=== PATIENT | male | born 1945 | race American Indian/Alaskan Native ===

== ENCOUNTER 2017-11-24 21:22 | Inpatient (IN) | payer MEDICARE, OTHER ==
[2017-11-24] MEDS ORDERED: NACL 0.9% 1000 ML 1,000 ML IV ONE (21:37)
[2017-11-24 22:27] LABS: Basophils % (Auto) 0.3 % (0.0-1.8); Eosinophils # (Auto) 0.1 K/mm3 (0.0-0.4); Eosinophils % (Auto) 1.2 % (0.0-4.3); Hematocrit 45.1 % (35.5-45.6); Lymphocytes # (Auto) 2.2 K/mm3 (1.2-5.4); Lymphocytes % (Auto) 23.7 % (13.4-35.0); Mean Corpuscular HGB Conc 33 % (32-34); Mean Corpuscular Hemoglobin 29 pg (28-32); Mean Corpuscular Volume 87 fl (84-94); Monocytes # (Auto) 0.8 K/mm3 (0.0-0.8); Monocytes % (Auto) 8.8 % (0.0-7.3); Platelet Count 140 K/mm3 (140-440); Red Blood Count 5.22 M/mm3 (3.65-5.03); Red Cell Distribution Width 14.6 % (13.2-15.2)
[2017-11-24 22:38] LABS: INR 0.87 (0.87-1.13); Partial Thromboplastin Time 24.3 Sec. (24.2-36.6)
[2017-11-24 22:45] LABS: Alanine Aminotransferase 37 units/L (7-56); Albumin 4.4 g/dL (3.9-5); BUN/Creatinine Ratio 25; Blood Urea Nitrogen 27 mg/dL (9-20); Hemolysis Index 9
[2017-11-25] MEDS ORDERED: NACL ONE (00:12)
--- NOTE | 2017-11-25 01:08 | Cat Scan Report ---
FINAL REPORT PROCEDURE: CT ABDOMEN PELVIS W CON TECHNIQUE: Computerized axial tomography of the abdomen and pelvis was performed after the IV injection of iodinated nonionic contrast. HISTORY: GI bleeding COMPARISON: No prior studies are available for comparison. FINDINGS: Visualized lower thorax: No significant abnormality. Liver: The liver size is normal. There are multiple sub centimeter areas of hypoattenuation in the right and left lobe of the liver. Small cysts are suspected. A larger area of hypoattenuation in the upper right lobe of the liver measures 1.5 centimeters. This is most consistent with a cyst. Spleen: Normal size and attenuation. Gallbladder and biliary system: Normal. Pancreas: Normal. Adrenals: Normal. Kidneys: Normal. GI tract: No obstruction. No ileus or enteritis. Moderate diverticular change in the colon. No inflammatory change. The appendix is normal.. Lymph nodes and mesentery: Normal. Vasculature: Normal. Bladder: Normal. Reproductive organs: The prostate gland is enlarged. Peritoneum: No free fluid. Musculoskeletal structures: No significant abnormality. Other: None. IMPRESSION: There is no evidence of intestinal or urinary tract obstruction. No ileus or enteritis. The appendix is normal. Moderate diverticulosis of the colon. Multiple liver cysts are suspected as described. The largest measures 1.5 centimeters.
--- NOTE | 2017-11-25 01:37 | Emergency Department Report ---
ED GI Bleed HPI - General Chief complaint: GI Bleed Stated complaint: RECTAL BLEEDING Time Seen by Provider: 11/24/17 21:44 Source: patient, EMS Mode of arrival: Stretcher Limitations: No Limitations - History of Present Illness Initial comments: Patient is a 72-year-old male who is presenting with rectal bleeding. Patient states bright red. Patient states he has no history of GI bleed. Patient states he has no abdominal pain fevers chills nausea vomiting at this time. -: This afternoon Quality: painless Associated Symptoms: denies: abdominal pain, nausea, vomiting, epistaxis, headaches, loss of appetite, malaise, easy bruising, rash, shortness of breath, syncope, weakness - Related Data Allergies Allergy/AdvReac Type Severity Reaction Status Date / Time No Known Allergies Allergy Unverified 11/24/17 21:32 ED Review of Systems ROS: Stated complaint: RECTAL BLEEDING Other details as noted in HPI Comment: All other systems reviewed and negative ED Past Medical Hx - Past Medical History Previous Medical History?: Yes Hx Hypertension: Yes Additional medical history: hyperlipidemia - Surgical History Past Surgical History?: No - Social History Smoking Status: Never Smoker ED Physical Exam - General Limitations: No Limitations General appearance: alert, in no apparent distress - Head Head exam: Present: atraumatic, normocephalic - Eye Eye exam: Present: normal appearance - ENT ENT exam: Present: mucous membranes moist - Neck Neck exam: Present: normal inspection - Respiratory Respiratory exam: Present: normal lung sounds bilaterally. Absent: respiratory distress, wheezes, rales, rhonchi - Cardiovascular Cardiovascular Exam: Present: regular rate, normal rhythm. Absent: systolic murmur, diastolic murmur, rubs, gallop - GI/Abdominal GI/Abdominal exam: Present: soft, normal bowel sounds. Absent: distended, tenderness, guarding, rebound - Rectal Rectal exam: Present: heme (+) stool (grossly bloody) - Extremities Exam Extremities exam: Present: normal inspection - Back Exam Back exam: Present: normal inspection - Neurological Exam Neurological exam: Present: alert, oriented X3 - Psychiatric Psychiatric exam: Present: normal affect, normal mood - Skin Skin exam: Present: warm, dry, intact, normal color. Absent: rash ED Course Vital Signs 11/24/17 11/24/17 21:32 22:19 Pulse Rate 82 Respiratory 16 Rate Blood Pressure 120/70 O2 Sat by Pulse 98 100 Oximetry ED Medical Decision Making - Lab Data Result diagrams: 11/24/17 22:04 11/24/17 Unknown - EKG Data -: EKG Interpreted by Me EKG shows normal: sinus rhythm, axis, intervals, QRS complexes, ST-T waves Rate: normal - EKG Data Interpretation: normal EKG - Radiology Data Radiology results: report reviewed CT abdomen and pelvis shows diverticular disease - Medical Decision Making Patient is a 72-year-old Female who is presenting with bleeding in his stool. Patient was grossly bloody on rectal exam and did not have any obvious hemorrhoids. Patient states he is more tender higher up in the rectum. CT was done that showed that he does have diverticulosis which is most likely causes bleeding. Patient will be admitted to Dr. Valdez to watch his hemoglobin For 48 hours. Critical care attestation.: If time is entered above; I have spent that time in minutes in the direct care of this critically ill patient, excluding procedure time. ED Disposition Clinical Impression: Diverticula of colon GI bleed Qualifiers: GI bleed type/associated pathology: unspecified gastrointestinal hemorrhage type Qualified Code(s): K92.2 - Gastrointestinal hemorrhage, unspecified Disposition: DC-09 OP ADMIT IP TO THIS HOSP Is pt being admited?: Yes Does the pt Need Aspirin: No Condition: Stable
[2017-11-25] MEDS ORDERED: ZOFRAN IV PRN (02:52)
[2017-11-25] MEDS ORDERED: TYLENOL PO PRN (02:52)
[2017-11-25] MEDS ORDERED: PROTONIX IV ONE (02:52)
[2017-11-25] MEDS ORDERED: SODIUM CHLORIDE FLUSH SYRINGE 10 ML IV PRN (02:52)
--- NOTE | 2017-11-25 02:54 | History and Physical Report ---
History of Present Illness Date of examination: 11/25/17 History of present illness: 72-year-old man with a history of hypertension, hyperlipidemia, comes to the emergency room because he had one episode of black stool yesterday followed by 5 episodes of bright red blood rectum Review Of Systems: Constitutional: no weight loss Ears, eyes, nose, mouth and throat: no nasal congestion, no nasal discharge, no sinus pressure, blurry vision, diplopia Neck: No neck pain or rigidity. Cardiovascular: no chest pain, orthopnea, palpitations Respiratory: no shortness of breath, cough Gastrointestinal:no abdominal pain Genitourinary : no dysuria, frequency , hematuria Musculoskeletal: no muscle ache Integumentary: no rash, no pruritis Neurological: no parathesias, focal weakness Endocrine: no cold or heat intolerance, no polyuria or polydipsia Hematologic/Lymphatic: no easy bruising, no easy bleeding, no gland swelling Allergic/Immunologic: no urticaria, no angioedema. PAST MEDICAL HISTORY: Hypertension, hyperlipidemia PAST SURGICAL HISTORY: Appendectomy, ankle surgery SOCIAL HISTORY:alchol use, no tobacco or drugs FAMILY HISTORY:hypertension Medications and Allergies Allergies Allergy/AdvReac Type Severity Reaction Status Date / Time No Known Allergies Allergy Unverified 11/24/17 21:32 Home Medications Medication Instructions Recorded Confirmed Last Taken Type Atorvastatin [Lipitor Tab] 40 mg PO QDAY 11/25/17 11/25/17 11/23/17 History Lisinopril [Zestril] 20 mg PO QDAY 11/25/17 11/25/17 11/23/17 History Sildenafil Citrate [Viagra] 100 mg PO QDAY 11/25/17 11/25/17 10/25/17 History Triamter/Hctz 37.5-25 mg 37.5 PO QDAY 11/25/17 11/23/17 History Exam - Physical Exam Narrative exam: Gen. appearance: Patient lying in bed, no apparent distress HEENT: Normocephalic, atraumatic, pupils equally round and reactive to light, extraocular movement intact, and no sclericterus,. No JVD or thyromegaly or nodule,neck supple, no carotid bruit ,mucous membranes moist, no exudate or erythema Heart: S1, S2, regular rate and rhythm Lungs: Clear to auscultation bilaterally, breathing comfortable Abdomen: Positive bowel sounds, nontender, nondistended, no organomegaly Extremity: No edema, cyanosis, clubbing Skin: No rash, nodules, warm, dry Neuro: Oriented 3, cranial nerves II-12 intact, speech is fluent, motor and sensory intact - Constitutional Vitals: Temp Pulse Resp BP Pulse Ox 82 16 120/70 100 11/24/17 21:32 11/24/17 22:19 11/24/17 21:32 11/24/17 22:19 Results - Labs CBC & Chem 7: 11/25/17 03:12 11/24/17 Unknown Labs: Abnormal lab results 11/24/17 11/24/17 Range/Units 22:04 Unknown RBC 5.22 H (3.65-5.03) M/mm3 [place] % (Auto) 8.8 H (0.0-7.3) % BUN 27 H (9-20) mg/dL Glucose 119 H (75-100) mg/dL - Imaging and Cardiology CT scan - pelvis: report reviewed US - abdomen: report reviewed Assessment and Plan Assessment GIB secondary to diverticulosis hypertension Hyperlipidemia Plan Admit to medicine Start IV fluids, Protonix, check serial hemoglobin Consult GI Continue appropriate outpatient medications DVT prophylaxis
[2017-11-25] MEDS ORDERED: NACL 0.45% 1000 ML 1,000 ML IV SCH (03:00)
[2017-11-25 03:19] LABS: Hematocrit 38.5 % (35.5-45.6); Hemoglobin 12.9 gm/dl (11.8-15.2)
[2017-11-25 07:35] LABS: Hematocrit 37.8 % (35.5-45.6); Hemoglobin 12.7 gm/dl (11.8-15.2)
--- NOTE | 2017-11-25 10:01 | Event Note ---
Date: 11/25/17 Pt admitted today with GI bleeding from diverticulitis seen and examined. Remains clinically stable.
[2017-11-25] MEDS: SODIUM CHLORIDE FLUSH SYRINGE 10 ML IV SCH ×2 (14:19→21:00)
[2017-11-25] MEDS: D5NS 1,000 ML IV SCH (14:35)
[2017-11-25 15:00] LABS: Hematocrit 36.3 % (35.5-45.6); Hemoglobin 11.9 gm/dl (11.8-15.2)
--- NOTE | 2017-11-25 15:21 | Gastroenterology Consultation ---
History of Present Illness - Reason for Consult Consult date: 11/25/17 GI bleed Requesting physician: SUN BAJWA - History of Present Illness Mr Plunkett is a 72 yo aam who presents for multiple episodes of maroon blood per rectum. Pt reports having ~5 episodes of bright and dark appearing blood prior to admission. This occured within 1 day span. last episode was 9 pm last night. He denies any associated abdominal pain with bleeding episodes and currently continues to deny abd pain. He denies prior h/o gi bleeding. No h/o weight loss and not on anticoagulation. he reports having a colonoscopy 3 years ago with 3 polyps removed by outside gi physician and was due for repeat this year. Vitals and labs stable. Past History Past Medical History: hypertension, hyperlipidemia Past Surgical History: No surgical history Social history: no significant social history Family history: no significant family history Medications and Allergies Allergies Allergy/AdvReac Type Severity Reaction Status Date / Time No Known Allergies Allergy Unverified 11/24/17 21:32 Home Medications Medication Instructions Recorded Confirmed Last Taken Type Atorvastatin [Lipitor Tab] 40 mg PO QDAY 11/25/17 11/25/17 11/23/17 History Lisinopril [Zestril] 20 mg PO QDAY 11/25/17 11/25/17 11/23/17 History Sildenafil Citrate [Viagra] 100 mg PO QDAY 11/25/17 11/25/17 10/25/17 History Triamter/Hctz 37.5-25 mg 37.5 mg PO QDAY 11/25/17 11/25/17 11/23/17 History Active Meds: Active Medications Acetaminophen (Tylenol) 650 mg PO Q4H PRN PRN Reason: Pain MILD(1-3)/Fever >100.5/ROPER Sodium Chloride (Nacl 0.45% 1000 Ml) 1,000 mls @ 75 mls/hr IV DIRECT ARIANA Last Admin: 11/25/17 10:12 Dose: 75 mls/hr Dextrose/Sodium Chloride (D5ns) 1,000 mls @ 75 mls/hr IV DIRECT ARIANA Last Admin: 11/25/17 14:35 Dose: 75 mls/hr Ondansetron HCl (Zofran) 4 mg IV Q8H PRN PRN Reason: Nausea And Vomiting Sodium Chloride (Sodium Chloride Flush Syringe 10 Ml) 10 ml IV BID ARIANA Last Admin: 11/25/17 14:19 Dose: Not Given Sodium Chloride (Sodium Chloride Flush Syringe 10 Ml) 10 ml IV PRN PRN PRN Reason: LINE FLUSH Review of Systems - Review of Systems All systems: negative (per HPI) Exam - Constitutional Vital Signs: Temp Pulse Resp BP Pulse Ox 69 13 118/76 99 11/25/17 04:00 11/25/17 04:00 11/25/17 04:00 11/25/17 04:00 General appearance: no acute distress - EENT Eyes: PERRL, EOM intact ENT: hearing intact, clear oral mucosa - Neck Neck: supple, normal ROM - Respiratory Respiratory effort: normal Respiratory: bilateral: CTA - Cardiovascular Rhythm: regular Heart Sounds: Present: S1 & S2 Extremities: No edema, Full ROM - Gastrointestinal General gastrointestinal: Present: soft, non-tender, non-distended, normal bowel sounds - Integumentary Integumentary: Present: clear, warm - Neurologic Neurological: alert and oriented x3 - Psychiatric Psychiatric: appropriate mood/affect - Labs CBC & Chem 7: 11/25/17 14:51 11/24/17 Unknown Lab Results: Laboratory Results - last 24 hr 11/24/17 11/24/17 11/24/17 21:50 22:04 22:08 WBC 9.3 RBC 5.22 H Hgb 15.0 Hct 45.1 MCV 87 MCH 29 MCHC 33 RDW 14.6 Plt Count 140 Lymph % (Auto) 23.7 [place] % (Auto) 8.8 H Eos % (Auto) 1.2 Baso % (Auto) 0.3 Lymph # 2.2 [place] # 0.8 Eos # 0.1 Baso # 0.0 Seg Neutrophils % 66.0 Seg Neutrophils # 6.2 PT 12.2 INR 0.87 APTT 24.3 Sodium Potassium Chloride Carbon Dioxide Anion Gap BUN Creatinine Estimated GFR BUN/Creatinine Ratio Glucose Calcium Total Bilirubin AST ALT Alkaline Phosphatase Total Protein Albumin Albumin/Globulin Ratio Blood Type O POSITIVE Antibody Screen Negative 11/24/17 11/25/17 11/25/17 Unknown 03:12 07:21 WBC RBC Hgb 12.9 12.7 Hct 38.5 D 37.8 MCV MCH MCHC RDW Plt Count Lymph % (Auto) [place] % (Auto) Eos % (Auto) Baso % (Auto) Lymph # [place] # Eos # Baso # Seg Neutrophils % Seg Neutrophils # PT INR APTT Sodium 144 Potassium 3.9 Chloride 102.9 Carbon Dioxide 27 Anion Gap 18 BUN 27 H Creatinine 1.1 Estimated GFR > 60 BUN/Creatinine Ratio 25 Glucose 119 H Calcium 9.0 Total Bilirubin 0.40 AST 27 ALT 37 Alkaline Phosphatase 93 Total Protein 7.2 Albumin 4.4 Albumin/Globulin Ratio 1.6 Blood Type Antibody Screen 11/25/17 14:51 WBC RBC Hgb 11.9 Hct 36.3 MCV MCH MCHC RDW Plt Count Lymph % (Auto) [place] % (Auto) Eos % (Auto) Baso % (Auto) Lymph # [place] # Eos # Baso # Seg Neutrophils % Seg Neutrophils # PT INR APTT Sodium Potassium Chloride Carbon Dioxide Anion Gap BUN Creatinine Estimated GFR BUN/Creatinine Ratio Glucose Calcium Total Bilirubin AST ALT Alkaline Phosphatase Total Protein Albumin Albumin/Globulin Ratio Blood Type Antibody Screen - Imaging CT Scan: report reviewed Assessment and Plan 1. GI bleed - suspected lower gi bleed based on history/description. no signs of active bleeding at present time, H/H stable and HD stable. CT without acute findings and showed diverticulosis. will plan for colonoscopy tomorrow (prep this evening) for diagnostic purposes and rule out other possible sources for bleeding. okay for clears today and npo at midnight.
[2017-11-25] MEDS ORDERED: DULCOLAX PO ONE (15:22)
[2017-11-25] MEDS ORDERED: GOLYTELY PO ONE (17:00)
[2017-11-26] MEDS: D5NS 1,000 ML IV SCH (04:56)
[2017-11-26 05:44] LABS: Basophils % (Auto) 0.3 % (0.0-1.8); Eosinophils # (Auto) 0.2 K/mm3 (0.0-0.4); Eosinophils % (Auto) 3.2 % (0.0-4.3); Hematocrit 34.5 % (35.5-45.6); Hemoglobin 11.6 gm/dl (11.8-15.2); Lymphocytes # (Auto) 2.6 K/mm3 (1.2-5.4); Lymphocytes % (Auto) 47.8 % (13.4-35.0); Mean Corpuscular HGB Conc 34 % (32-34); Mean Corpuscular Hemoglobin 29 pg (28-32); Mean Corpuscular Volume 87 fl (84-94); Monocytes # (Auto) 0.6 K/mm3 (0.0-0.8); Monocytes % (Auto) 11.4 % (0.0-7.3); Platelet Count 113 K/mm3 (140-440); Red Blood Count 3.99 M/mm3 (3.65-5.03); Red Cell Distribution Width 13.9 % (13.2-15.2)
[2017-11-26 06:09] LABS: BUN/Creatinine Ratio 19; Blood Urea Nitrogen 17 mg/dL (9-20); Calcium 7.7 mg/dL (8.4-10.2); Hemolysis Index 7
[2017-11-26] MEDS: SODIUM CHLORIDE FLUSH SYRINGE 10 ML IV SCH (09:21)
[2017-11-26] MEDS ORDERED: WATER FOR IRRIG STERILE ONE (09:44)
[2017-11-26] MEDS ORDERED: WATER FOR IRRIG STERILE IR ONE (09:44)
[2017-11-26] MEDS ORDERED: NACL 0.9% 1000 ML 1,000 ML IV SCH (11:00)
--- NOTE | 2017-11-26 11:06 | Anesthesia Day of Surgery ---
Anesthesia Day of Surgery - Day of Surgery Patient Examined: Yes Patient H&P Reviewed: Yes Patient is NPO: Yes Beta Blockers: Yes Cardiac Clearance: Yes Pulmonary Clearance: Yes Chad's Test: N/A
--- NOTE | 2017-11-26 11:08 | Anesthesia Consultation ---
Anesthesia Consult and Med Hx Date of service: 11/26/17 - Airway Anesthetic Teeth Evaluation: Good ROM Head & Neck: Adequate Mental/Hyoid Distance: Adequate Mallampati Class: Class II Intubation Access Assessment: Good - Pulmonary Exam CTA: Yes - Cardiac Exam Cardiac Exam: RRR - Pulmonary Hx Smoking: No (08/27/1960) Hx Asthma: No Hx Respiratory Symptoms: No SOB: No COPD: No Home Oxygen Therapy: No Hx Pneumonia: No Hx Sleep Apnea: No - Cardiovascular System Hx Hypertension: Yes Hx Coronary Artery Disease: No Hx Heart Attack/AMI: No Hx Angina: No Hx Percutaneous Transluminal Coronary Angioplasty (PTCA): No Hx Cardia Arrhythmia: No Hx Pacemaker: No Hx Internal Defibrillator: No Hx Valvular Heart Disease: No Hx Heart Murmur: No Hx Peripheral Vascular Disease: No - Central Nervous System Hx Neuromuscular Disorder: No Hx Seizures: No CVA: No Hx Back Pain: No Hx Psychiatric Problems: No - Gastrointestinal Hx Ulcer: No Hx Gastroesophageal Reflux Disease: No - Endocrine Hx Renal Disease: No Hx End Stage Renal Disease: No - Other Systems Hx Cancer: No
--- NOTE | 2017-11-26 11:23 | Progress Note ---
Objective - Constitutional Vitals: Vital Signs - 12hr 11/26/17 11/26/17 11/26/17 02:59 04:00 07:45 Temperature 98.8 F 99 F Pulse Rate 67 76 71 Respiratory 20 18 Rate Blood Pressure Blood Pressure 117/68 119/71 [Left] O2 Sat by Pulse 97 97 Oximetry 11/26/17 11/26/17 11/26/17 08:22 09:47 10:21 Temperature 98.5 F Pulse Rate 71 68 Respiratory 18 13 Rate Blood Pressure 148/77 Blood Pressure [Left] O2 Sat by Pulse 99 99 98 Oximetry 11/26/17 10:22 Temperature 98.5 F Pulse Rate 68 Respiratory 13 Rate Blood Pressure 148/77 Blood Pressure [Left] O2 Sat by Pulse 98 Oximetry - Labs CBC & Chem 7: 11/26/17 05:20 11/26/17 05:20 Labs: Abnormal lab results 11/26/17 11/26/17 Range/Units 05:20 05:20 Hgb 11.6 L (11.8-15.2) gm/dl Hct 34.5 L (35.5-45.6) % Plt Count 113 L (140-440) K/mm3 Lymph % (Auto) 47.8 H (13.4-35.0) % [place] % (Auto) 11.4 H (0.0-7.3) % Seg Neutrophils % 37.3 L (40.0-70.0) % Glucose 108 H (75-100) mg/dL Calcium 7.7 L (8.4-10.2) mg/dL
--- NOTE | 2017-11-26 11:26 | Post Operative Note ---
Pre-op diagnosis: hematochezia Post-op diagnosis: other (diverticulosis, internal hemorrhoids) Findings: 1. Scattered diverticula throughout the colon 2. Internal hemorrhoids No signs of bleeding or blood seen in the colon. Procedure: Colonoscopy Anesthesia: MAC Surgeon: CAREY SUAREZ Estimated blood loss: none Pathology: none Condition: stable Disposition: floor
--- NOTE | 2017-11-26 11:33 | Operative Report ---
Operative Report Operative Report: Colonoscopy Procedure Report Date of procedure: 11/26/2017 Endoscopist: Chico mcgowan Pre-op diagnosis: hematochezia Post-op diagnosis: diverticulosis, internal hemorrhoids Anesthesia: MAC Complications: No immediate complications Estimated blood loss: none Procedure: After consent was obtained, the patient was placed in the left lateral decubitus position. The fujinon colonoscope was inserted into the patient's rectum under direct vision, and advanced to the cecum without difficulty. The patient tolerated the procedure well. The quality of prep was good. The views of the mucosa were good. The patient's vital signs were monitored continuously throughout the procedure. Findings: There were multiple scattered diverticula throughout the colon (mostly medium- sized tics). Internal hemorrhoids were seen on retroflexion view. Otherwise, the colon appeared normal. There was clear liquid throughout the colon without any blood seen. Impression: 1. Moderately severe diverticulosis 2. Internal hemorrhoids No signs of bleeding during procedure. Difficult to say whether bleeding is diverticular vs hemorrhoidal, but no signs of further bleeding and H/H has been stable. Recommendations: -high fiber diet daily -hemorrhoidal suppository prn -restart diet as tolerated -miralax prn to avoid constipation/straining Will sign off, please call as needed or with questions. Follow-up with pt's GI physician after discharge.
[2017-11-26] MEDS ORDERED: DIPRIVAN 10 MG/ML IV ONE (11:41)
[2017-11-26 13:33] VITALS: BP 133/74
--- NOTE | 2017-11-26 14:11 | Post Anesthesia Evaluation ---
- Post Anesthesia Evaluation Patient Participated: Yes Airway Patent: Yes Stable Respiratory Function: Yes Nausea/Vomiting: No Temp > 96.8F: Yes Pain Manageable: Yes Adequeate Hydration: Yes Anesthesia Complications: No
--- NOTE | 2017-11-26 16:06 | Discharge Summary ---
Providers - Providers Date of Admission: 11/25/17 02:52 Date of discharge: 11/26/17 Attending physician: SADE BARRIGA 11/25/17 02:52 Consult to Physician [CONS] Routine Comment: DOLORES Consulting Provider: LORRIE SHEIKH Physician Instructions: CALLED @[phone] (GEOFF) Reason For Exam: bpr/diverticulosis Primary care physician: KORTNEY BARRERA Hospitalization Reason for admission: rectal bleeding Condition: Good Procedures: Colonoscopy Hospital course: Final discharge diagnosis -Rectal bleed secondary to internal hemorrhoid -[id number] diverticulosis Secondary discharge diagnosis -Hypertension Patient was admitted and placed on PPI. Serial H&H were done, which remained stable. Thereafter he underwent colonoscopy which showed moderate to sever diverticulosis and internal hemorrhoid without active bleeding. Post-procedure , patient was monitored without any adverse events and was later cleared by the licensing registration examiner for discharge. Disposition: TO HOME OR SELFCARE Core Measure Documentation - Palliative Care Palliative Care/ Comfort Measures: Not Applicable - Core Measures Any of the following diagnoses?: none Exam - Constitutional Vitals: Temp Pulse Resp BP Pulse Ox 98.2 F 74 18 133/74 99 11/26/17 13:32 11/26/17 13:32 11/26/17 13:32 11/26/17 13:32 11/26/17 13:32 General appearance: Present: no acute distress, well-nourished - EENT Eyes: Present: PERRL ENT: hearing intact, clear oral mucosa - Neck Neck: Present: supple, normal ROM - Respiratory Respiratory effort: normal Respiratory: bilateral: CTA - Cardiovascular Heart Sounds: Present: S1 & S2. Absent: rub, click - Extremities Extremities: pulses symmetrical, No edema Peripheral Pulses: within normal limits - Abdominal General gastrointestinal: Present: soft, non-tender, non-distended, normal bowel sounds Male genitourinary: Present: normal - Integumentary Integumentary: Present: clear, warm, dry - Musculoskeletal Musculoskeletal: gait normal, strength equal bilaterally - Psychiatric Psychiatric: appropriate mood/affect, intact judgment & insight - Neurologic Neurologic: CNII-XII intact, moves all extremities Plan Activity: no restrictions Weight Bearing Status: Full Weight Bearing Diet: other (high fiber diet) Follow up with: KORTNEY BARRERA MD [Primary Care Provider] - 7 Days Forms: Accompanied Note Prescriptions: Pantoprazole [Protonix] 40 mg PO QDAY #30 tablet Phenylephrine HCl [Hemorrhoidal Suppository] 1 each RC PRN PRN #30 supp.rect PRN Reason: Hemorrhoids
== END 2017-11-26 16:50 | disposition home or self-care (01) | DRG 393 ==
LOC: ED 21:22 → 4A 11-25 02:52 → 2B-ACE 11-25 10:47
PROVIDERS: ADMIT Internal Medicine; ATTEND Internal Medicine
PROC: 0DJD8ZZ Inspection of Lower Intestinal Tract, Via Natural or Artificial Opening Endoscopic (ICD-10-PCS; principal; 2017-11-26)
DX: K64.8 Other hemorrhoids (principal); K57.31 Diverticulosis of large intestine without perforation or abscess with bleeding; K57.93 Diverticulitis of intestine, part unspecified, without perforation or abscess with bleeding; I10 Essential (primary) hypertension; E78.5 Hyperlipidemia, unspecified; Z90.49 Acquired absence of other specified parts of digestive tract; Z82.49 Family history of ischemic heart disease and other diseases of the circulatory system; Z72.89 Other problems related to lifestyle; Z79.899 Other long term (current) drug therapy
CPT/HCPCS: 36415; 74177; 80048; 80053; 85014; 85018; 85025; 85610; 85730; 86850; 86900; 86901; 93005; 93010; C9113; J2704; J7030; J7042; Q9967